=== PATIENT | male | born 1970 | race African-American/Black ===

== ENCOUNTER 2017-12-18 08:47 | Inpatient (IN) | payer OTHER ==
[2017-12-18] MEDS ORDERED: VANCOMYCIN 1 GM (PMX) 250 ML (09:42)
[2017-12-18] MEDS ORDERED: CEFEPIME 1GM/50 ML (PMX) 50 ML (09:42)
[2017-12-18 09:45] LABS: ADD MAN DIFF? NO
[2017-12-18 09:47] LABS: WHITE BLOOD COUNT 15.9 10^3/ul (4.8-10.8)
[2017-12-18 09:47] LABS: ABNORMAL IP MESSAGE 1; BASOPHIL # 0.1 10^3/ul (0.0-0.1); BASOPHILS % 0.8 % (0.0-2.0); EOSINOPHILS # 0.5 10^3/ul (0.0-0.5); EOSINOPHILS % 2.9 % (0.0-7.0); HEMATOCRIT 33.6 % (42.0-52.0); HEMOGLOBIN 10.2 g/dl (14.0-18.0); LYMPHOCYTES # 4.5 10^3/ul (0.8-2.9); LYMPHOCYTES % 28.2 % (15.0-51.0); MEAN CORPUSCULAR HEMOGLOBIN 27.6 pg (29.0-33.0); MEAN CORPUSCULAR HGB CONC 30.4 g/dl (32.0-37.0); MEAN CORPUSCULAR VOLUME 90.8 fl (82.0-101.0); MEAN PLATELET VOLUME 11.9 fl (7.4-10.4); MONOCYTE # 1.8 10^3/ul (0.3-0.9); MONOCYTES % 11.4 % (0.0-11.0); NEUTROPHIL # 8.9 10^3/ul (1.6-7.5); NEUTROPHILS % 55.9 % (39.0-77.0); PLATELET COUNT 283 10^3/UL (140-415); POSITIVE DIFF @See below; RED CELL DISTRIBUTION WIDTH 15.9 % (11.5-14.5)
[2017-12-18] MEDS: SODIUM CHLORIDE 0.9% 1L BAG IV* (09:57)
[2017-12-18 10:05] LABS: LACTIC ACID 1.9 mmol/L (0.5-2.0)
[2017-12-18 10:06] LABS: INR 0.97
[2017-12-18 10:07] LABS: PARTIAL THROMBOPLASTIN TIME 25.8 Sec (23.0-35.0)
[2017-12-18 10:08] LABS: ALANINE AMINOTRANSFERASE 62 IU/L (13-69); ALBUMIN 4.6 g/dl (3.3-4.9); ALBUMIN/GLOBULIN RATIO 1.06; ALKALINE PHOSPHATASE 238 IU/L (42-121); ASPARTATE AMINO TRANSFERASE 52 IU/L (15-46); BILIRUBIN,INDIRECT 0.2 mg/dl (0-1.1); BILIRUBIN,TOTAL 0.2 mg/dl (0.2-1.3); BLOOD UREA NITROGEN 28 mg/dl (7-20); CALCIUM 10.9 mg/dl (8.4-10.2); CARBON DIOXIDE 34 mmol/L (21-31); CHLORIDE 106 mmol/L (97-110); GLUCOSE 173 mg/dl (70-220); LIPASE 91 U/L (23-300); POTASSIUM 3.9 mmol/L (3.5-5.1); TOTAL PROTEIN 8.9 g/dl (6.1-8.1)
[2017-12-18] MEDS: CEFEPIME 2GM/50 ML (PMX) 50 ML IVPB (10:08)
[2017-12-18 10:15] LABS: ANION GAP 13 (8-16); SODIUM 149 mmol/L (135-144)
[2017-12-18 10:17] LABS: TROPONIN-I < 0.012 ng/ml (0.000-0.120)
[2017-12-18] MEDS: VANCOMYCIN 1 GM (PMX) 250 ML IVPB (10:37)
[2017-12-18 11:03] LABS: ADD UMIC NO; UR ASCORBIC ACID 40 mg/dL (NEGATIVE); UR BILIRUBIN (Dip) NEGATIVE (NEGATIVE); UR BLOOD (Dip) NEGATIVE (NEGATIVE); UR CLARITY SLIGHTLY CLOUDY (CLEAR); UR COLOR YELLOW (YELLOW); UR GLUCOSE (Dip) NEGATIVE (NEGATIVE); UR KETONES (Dip) NEGATIVE (NEGATIVE); UR LEUKOCYTE ESTERASE (Dip) NEGATIVE Leu/ul (NEGATIVE); UR NITRITE (Dip) NEGATIVE (NEGATIVE); UR RBC 1 /HPF (0-5); UR SPECIFIC GRAVITY (Dip) 1.014 (1.003-1.030); UR TOTAL PROTEIN (Dip) NEGATIVE (NEGATIVE); UR UROBILINOGEN (Dip) NEGATIVE (NEGATIVE); UR WBC 2 /HPF (0-5)
[2017-12-18] MEDS ORDERED: ACETAMINOPHEN 325 MG TAB PO (11:30)
[2017-12-18] MEDS ORDERED: BISACODYL 10 MG SUPP PR (11:30)
[2017-12-18] MEDS ORDERED: VANCOMYCIN IV PER PHARMACY XX (11:30)
[2017-12-18] MEDS ORDERED: NACL 0.9% 3 ML SYG IV (11:30)
[2017-12-18] MEDS: METOCLOPRAMIDE 5 MG TAB GTB ×3 (11:30→21:07)
[2017-12-18] MEDS ORDERED: DOCUSATE SODIUM 100 MG CAP PO (11:30)
[2017-12-18] MEDS ORDERED: MINERAL OIL 133 ML ENEMA PR (11:30)
[2017-12-18] MEDS ORDERED: ZOLPIDEM 5 MG TAB PO (11:30)
[2017-12-18] MEDS ORDERED: ONDANSETRON 4 MG INJ IV (11:30)
[2017-12-18] MEDS: INSULIN ASPART [NOVOLOG] 3 ML PEN SC ×3 (13:00→21:34)
[2017-12-18] MEDS ORDERED: GLUCAGON 1 MG INJ IM (13:30)
[2017-12-18] MEDS ORDERED: GLUCOSE GEL 15 GRAM TUBE PO ×2 (13:30)
[2017-12-18] MEDS ORDERED: GLUCOSE GEL 15 GRAM TUBE BUCCAL (13:30)
[2017-12-18] MEDS ORDERED: DEXTROSE 50% 50 ML SYRINGE IV ×2 (13:30)
[2017-12-18] MEDS: HYDROCODONE/APAP (5/325) TAB PO (14:41)
[2017-12-18] MEDS: DEXTROSE 5%-0.45% NACL 1,000 ML IV ×2 (15:39→21:10)
[2017-12-18] MEDS: morphine 2 MG INJ IV (16:47)
[2017-12-18] MEDS: PIPER-TAZO 3.375 GM IV (PMX) 100 ML IVPB ×2 (20:00→20:39)
[2017-12-18 20:16] LABS: LACTIC ACID 0.9 mmol/L (0.5-2.0)
[2017-12-18] MEDS: VANCOMYCIN 1 GM in 250 ML IVPB (20:39)
[2017-12-18] MEDS ORDERED: NON-FORMULARY/PATIENT OWN MED (Cran/Vitc/Mannose/Inulin/Brom (Uti-Stat Liquid) 3,875 MG) GTB (21:00)
[2017-12-18] MEDS: ATORVASTATIN 20 MG TAB GTB (21:07)
[2017-12-18] MEDS: MAGNESIUM HYDROXIDE 30ML CUP GTB (21:07)
[2017-12-18] MEDS: CHLORHEXIDINE GLUCONATE 15 ML UD CUP PO (21:07)
[2017-12-18] MEDS: AMANTADINE 100 MG CAP GTB (21:30)
[2017-12-18 22:54] LABS: LACTIC ACID 0.9 mmol/L (0.5-2.0)
[2017-12-19] MEDS: INSULIN ASPART [NOVOLOG] 3 ML PEN SC ×6 (00:58→21:03)
[2017-12-19] MEDS: PIPER-TAZO 3.375 GM IV (PMX) 100 ML IVPB ×4 (00:59→17:28)
[2017-12-19] MEDS: VANCOMYCIN 1 GM in 250 ML IVPB ×2 (00:59→09:47)
[2017-12-19] MEDS: ACCU-CHEK XX (02:00)
[2017-12-19] MEDS ORDERED: PENDING SANTYL ORDER FOR WOUND CARE XX (05:00)
[2017-12-19 05:08] LABS: ADD MAN DIFF? NO; BASOPHIL # 0.1 10^3/ul (0.0-0.1); EOSINOPHILS # 0.6 10^3/ul (0.0-0.5); EOSINOPHILS % 4.5 % (0.0-7.0); HEMATOCRIT 31.7 % (42.0-52.0); HEMOGLOBIN 9.5 g/dl (14.0-18.0); LYMPHOCYTES # 3.5 10^3/ul (0.8-2.9); LYMPHOCYTES % 27.8 % (15.0-51.0); MEAN CORPUSCULAR HEMOGLOBIN 27.2 pg (29.0-33.0); MEAN CORPUSCULAR VOLUME 90.8 fl (82.0-101.0); MEAN PLATELET VOLUME 11.1 fl (7.4-10.4); MONOCYTE # 1.3 10^3/ul (0.3-0.9); MONOCYTES % 10.7 % (0.0-11.0); NEUTROPHIL # 6.9 10^3/ul (1.6-7.5); PLATELET COUNT 248 10^3/UL (140-415); RED BLOOD COUNT 3.49 10^6/ul (4.70-6.10); RED CELL DISTRIBUTION WIDTH 15.9 % (11.5-14.5)
[2017-12-19 05:08] LABS: WHITE BLOOD COUNT 12.6 10^3/ul (4.8-10.8)
[2017-12-19] MEDS: METOCLOPRAMIDE 5 MG TAB GTB ×4 (05:25→21:01)
[2017-12-19 05:43] LABS: ANION GAP 11 (8-16); BLOOD UREA NITROGEN 15 mg/dl (7-20); CALCIUM 10.6 mg/dl (8.4-10.2); CARBON DIOXIDE 34 mmol/L (21-31); CHLORIDE 111 mmol/L (97-110); CREATININE 0.47 mg/dl (0.61-1.24); GLUCOSE 164 mg/dl (70-220); POTASSIUM 3.7 mmol/L (3.5-5.1); SODIUM 152 mmol/L (135-144)
[2017-12-19 06:04] LABS: HEMOGLOBIN A1C 6.1 % (0-5.9)
[2017-12-19] MEDS: DEXTROSE 5%-0.45% NACL 1,000 ML IV (06:18)
[2017-12-19] MEDS: THIAMINE 100 MG TAB GTB (09:00)
[2017-12-19] MEDS: AMANTADINE 100 MG CAP GTB ×2 (09:00→21:01)
[2017-12-19] MEDS: ZINC SULFATE 220 MG CAP GTB (09:00)
[2017-12-19] MEDS: MULTIVITAMINS THERAPEUTIC TAB GTB (09:00)
[2017-12-19] MEDS: CHLORHEXIDINE GLUCONATE 15 ML UD CUP PO ×2 (09:00→21:01)
[2017-12-19] MEDS: FOLIC ACID 1 MG TAB PO (09:01)
[2017-12-19] MEDS: ASCORBIC ACID 500 MG TAB GTB (09:01)
[2017-12-19] MEDS: ENOXAPARIN 40 MG/0.4 ML SYG SC (09:05)
[2017-12-19] MEDS: DEXTROSE 5% 1,000 ML IV (12:19)
[2017-12-19] MEDS: LEVETIRACETAM 500 MG TAB GTB ×2 (12:48→21:01)
[2017-12-19] MEDS: LACTOBACILLUS RHAMNOSUS CAP PO (17:28)
[2017-12-19 17:36] LABS: ALBUMIN 3.6 g/dl (3.3-4.9); ANION GAP 11 (8-16); BLOOD UREA NITROGEN 10 mg/dl (7-20); CALCIUM 11.1 mg/dl (8.4-10.2); CARBON DIOXIDE 32 mmol/L (21-31); CHLORIDE 108 mmol/L (97-110); CREATININE 0.52 mg/dl (0.61-1.24); GLUCOSE 128 mg/dl (70-220); PHOSPHORUS 3.1 mg/dl (2.5-4.9); POTASSIUM 3.3 mmol/L (3.5-5.1)
[2017-12-19 17:46] LABS: VANCOMYCIN,TROUGH 21.8 ug/ml (10.0-20.0)
[2017-12-19 18:04] LABS: SODIUM 148 mmol/L (135-144)
[2017-12-19] MEDS: ATORVASTATIN 20 MG TAB GTB (21:01)
[2017-12-19] MEDS: MAGNESIUM HYDROXIDE 30ML CUP GTB (21:01)
[2017-12-19] MEDS: VANCOMYCIN 1.25 GM in SOD CHLORIDE 0.9% 250 ML IVPB (22:52)
[2017-12-20] MEDS: PIPER-TAZO 3.375 GM IV (PMX) 100 ML IVPB ×4 (01:04→23:29)
[2017-12-20] MEDS: INSULIN ASPART [NOVOLOG] 3 ML PEN SC ×6 (01:14→20:40)
[2017-12-20] MEDS: ACCU-CHEK XX (01:14)
[2017-12-20] MEDS: DEXTROSE 5% 1,000 ML IV (04:45)
[2017-12-20 05:34] LABS: ADD MAN DIFF? NO
[2017-12-20 05:47] LABS: BASOPHIL # 0.1 10^3/ul (0.0-0.1); BASOPHILS % 0.9 % (0.0-2.0); EOSINOPHILS # 0.5 10^3/ul (0.0-0.5); EOSINOPHILS % 4.5 % (0.0-7.0); HEMOGLOBIN 10.3 g/dl (14.0-18.0); LYMPHOCYTES # 3.6 10^3/ul (0.8-2.9); LYMPHOCYTES % 32.4 % (15.0-51.0); MEAN CORPUSCULAR HEMOGLOBIN 27.1 pg (29.0-33.0); MEAN CORPUSCULAR HGB CONC 30.3 g/dl (32.0-37.0); MEAN CORPUSCULAR VOLUME 89.5 fl (82.0-101.0); MEAN PLATELET VOLUME 11.2 fl (7.4-10.4); MONOCYTES % 9.2 % (0.0-11.0); NEUTROPHIL # 5.8 10^3/ul (1.6-7.5); NEUTROPHILS % 51.9 % (39.0-77.0); PLATELET COUNT 260 10^3/UL (140-415); RED CELL DISTRIBUTION WIDTH 15.5 % (11.5-14.5)
[2017-12-20 05:47] LABS: WHITE BLOOD COUNT 11.2 10^3/ul (4.8-10.8)
[2017-12-20 06:10] LABS: ANION GAP 13 (8-16); BLOOD UREA NITROGEN 11 mg/dl (7-20); CALCIUM 11.1 mg/dl (8.4-10.2); CARBON DIOXIDE 31 mmol/L (21-31); CHLORIDE 107 mmol/L (97-110); CREATININE 0.43 mg/dl (0.61-1.24); GLUCOSE 162 mg/dl (70-220); PHOSPHORUS 2.8 mg/dl (2.5-4.9); POTASSIUM 3.3 mmol/L (3.5-5.1); SODIUM 148 mmol/L (135-144)
[2017-12-20] MEDS: METOCLOPRAMIDE 5 MG TAB GTB ×4 (06:20→20:32)
[2017-12-20] MEDS ORDERED: BALSAM PERU/CASTOR OIL 60 GM TUBE TOP (09:00)
[2017-12-20] MEDS: MULTIVITAMINS THERAPEUTIC TAB GTB (09:55)
[2017-12-20] MEDS: LACTOBACILLUS RHAMNOSUS CAP PO (09:55)
[2017-12-20] MEDS: FOLIC ACID 1 MG TAB PO (09:55)
[2017-12-20] MEDS: AMANTADINE 100 MG CAP GTB ×2 (09:55→20:32)
[2017-12-20] MEDS: CHLORHEXIDINE GLUCONATE 15 ML UD CUP PO ×2 (09:55→20:31)
[2017-12-20] MEDS: ASCORBIC ACID 500 MG TAB GTB (09:55)
[2017-12-20] MEDS: LEVETIRACETAM 500 MG TAB GTB ×2 (09:56→20:32)
[2017-12-20] MEDS: THIAMINE 100 MG TAB GTB (09:56)
[2017-12-20] MEDS: ZINC SULFATE 220 MG CAP GTB (09:56)
[2017-12-20] MEDS: ENOXAPARIN 40 MG/0.4 ML SYG SC (10:09)
[2017-12-20] MEDS: BALSAM PERU/CASTOR OIL 60 GM TUBE TOP ×2 (10:29→20:34)
[2017-12-20] MEDS: VANCOMYCIN 1.25 GM in SOD CHLORIDE 0.9% 250 ML IVPB ×2 (10:47→23:29)
[2017-12-20] MEDS: POTASSIUM CHLORIDE 100 ML IVPB ×3 (11:30→19:07)
[2017-12-20] MEDS ORDERED: LEVOFLOXACIN 500MG/D5W (PMX) 100 ML IVPB (15:30)
[2017-12-20] MEDS ORDERED: VANCOMYCIN IV PER PHARMACY XX (16:00)
[2017-12-20] MEDS: HYDROCODONE/APAP (5/325) TAB PO (19:07)
[2017-12-20] MEDS ORDERED: morphine LIQ (10 MG/5 ML) CUP GTB (20:30)
[2017-12-20] MEDS: MAGNESIUM HYDROXIDE 30ML CUP GTB (20:31)
[2017-12-20] MEDS: ATORVASTATIN 20 MG TAB GTB (20:32)
[2017-12-21] MEDS: INSULIN ASPART [NOVOLOG] 3 ML PEN SC ×6 (01:00→20:53)
[2017-12-21] MEDS: ACCU-CHEK XX (02:00)
[2017-12-21] MEDS: DEXTROSE 5% 1,000 ML IV (02:00)
[2017-12-21] MEDS: PIPER-TAZO 3.375 GM IV (PMX) 100 ML IVPB ×3 (05:07→17:37)
[2017-12-21 06:12] LABS: ADD MAN DIFF? NO
[2017-12-21 06:16] LABS: WHITE BLOOD COUNT 13.4 10^3/ul (4.8-10.8)
[2017-12-21 06:16] LABS: BASOPHIL # 0.1 10^3/ul (0.0-0.1); BASOPHILS % 0.9 % (0.0-2.0); EOSINOPHILS # 0.5 10^3/ul (0.0-0.5); EOSINOPHILS % 3.9 % (0.0-7.0); HEMATOCRIT 33.4 % (42.0-52.0); HEMOGLOBIN 10.4 g/dl (14.0-18.0); LYMPHOCYTES # 4.2 10^3/ul (0.8-2.9); LYMPHOCYTES % 31.1 % (15.0-51.0); MEAN CORPUSCULAR HEMOGLOBIN 27.9 pg (29.0-33.0); MEAN CORPUSCULAR HGB CONC 31.1 g/dl (32.0-37.0); MEAN CORPUSCULAR VOLUME 89.5 fl (82.0-101.0); MEAN PLATELET VOLUME 11.5 fl (7.4-10.4); MONOCYTE # 1.4 10^3/ul (0.3-0.9); MONOCYTES % 10.4 % (0.0-11.0); NEUTROPHIL # 7.1 10^3/ul (1.6-7.5); NEUTROPHILS % 52.7 % (39.0-77.0); PLATELET COUNT 293 10^3/UL (140-415); RED BLOOD COUNT 3.73 10^6/ul (4.70-6.10); RED CELL DISTRIBUTION WIDTH 15.7 % (11.5-14.5)
[2017-12-21 06:59] LABS: ANION GAP 12 (8-16); BLOOD UREA NITROGEN 10 mg/dl (7-20); CALCIUM 10.9 mg/dl (8.4-10.2); CARBON DIOXIDE 29 mmol/L (21-31); CHLORIDE 112 mmol/L (97-110); GLUCOSE 143 mg/dl (70-220); PHOSPHORUS 2.6 mg/dl (2.5-4.9); POTASSIUM 3.9 mmol/L (3.5-5.1); SODIUM 149 mmol/L (135-144)
[2017-12-21] MEDS ORDERED: METOPROLOL 5 MG INJ IV (09:00)
[2017-12-21] MEDS: LACTOBACILLUS RHAMNOSUS CAP PO (10:26)
[2017-12-21] MEDS: BALSAM PERU/CASTOR OIL 60 GM TUBE TOP ×2 (10:26→22:13)
[2017-12-21] MEDS: CHLORHEXIDINE GLUCONATE 15 ML UD CUP PO ×2 (10:26→22:11)
[2017-12-21] MEDS: ASCORBIC ACID 500 MG TAB GTB (10:27)
[2017-12-21] MEDS: METOCLOPRAMIDE 5 MG TAB GTB ×4 (10:27→22:12)
[2017-12-21] MEDS: FOLIC ACID 1 MG TAB PO (10:27)
[2017-12-21] MEDS: LEVETIRACETAM 500 MG TAB GTB ×2 (10:27→22:12)
[2017-12-21] MEDS: AMANTADINE 100 MG CAP GTB ×2 (10:27→22:12)
[2017-12-21] MEDS: THIAMINE 100 MG TAB GTB (10:27)
[2017-12-21] MEDS: MULTIVITAMINS THERAPEUTIC TAB GTB (10:27)
[2017-12-21] MEDS: ZINC SULFATE 220 MG CAP GTB (10:27)
[2017-12-21] MEDS: LABETALOL 100 MG TAB GTB ×2 (10:28→22:11)
[2017-12-21] MEDS: ENOXAPARIN 40 MG/0.4 ML SYG SC (10:38)
[2017-12-21 11:35] LABS: VANCOMYCIN,TROUGH 19.2 ug/ml (10.0-20.0)
[2017-12-21] MEDS ORDERED: LEVOFLOXACIN 500 MG TAB PO (12:00)
[2017-12-21] MEDS: VANCOMYCIN 1 GM 250 ML IVPB (16:46)
[2017-12-21] MEDS: MAGNESIUM HYDROXIDE 30ML CUP GTB (22:11)
[2017-12-21] MEDS: ATORVASTATIN 20 MG TAB GTB (22:12)
[2017-12-22] MEDS: PIPER-TAZO 3.375 GM IV (PMX) 100 ML IVPB ×4 (01:04→18:33)
[2017-12-22] MEDS: INSULIN ASPART [NOVOLOG] 3 ML PEN SC ×6 (01:49→22:00)
[2017-12-22] MEDS: VANCOMYCIN 1 GM 250 ML IVPB ×2 (03:49→16:40)
[2017-12-22] MEDS: DEXTROSE 5% 1,000 ML IV ×2 (03:53→18:00)
[2017-12-22 05:40] LABS: ADD MAN DIFF? NO
[2017-12-22 05:47] LABS: BASOPHIL # 0.1 10^3/ul (0.0-0.1); BASOPHILS % 0.8 % (0.0-2.0); EOSINOPHILS # 0.5 10^3/ul (0.0-0.5); EOSINOPHILS % 4.1 % (0.0-7.0); HEMATOCRIT 31.4 % (42.0-52.0); HEMOGLOBIN 9.6 g/dl (14.0-18.0); LYMPHOCYTES # 4.4 10^3/ul (0.8-2.9); LYMPHOCYTES % 35.6 % (15.0-51.0); MEAN CORPUSCULAR HEMOGLOBIN 27.3 pg (29.0-33.0); MEAN CORPUSCULAR HGB CONC 30.6 g/dl (32.0-37.0); MEAN CORPUSCULAR VOLUME 89.2 fl (82.0-101.0); MEAN PLATELET VOLUME 11.4 fl (7.4-10.4); MONOCYTE # 1.3 10^3/ul (0.3-0.9); MONOCYTES % 10.5 % (0.0-11.0); NEUTROPHIL # 5.9 10^3/ul (1.6-7.5); NEUTROPHILS % 47.9 % (39.0-77.0); PLATELET COUNT 271 10^3/UL (140-415); RED BLOOD COUNT 3.52 10^6/ul (4.70-6.10); RED CELL DISTRIBUTION WIDTH 15.7 % (11.5-14.5)
[2017-12-22 05:47] LABS: WHITE BLOOD COUNT 12.3 10^3/ul (4.8-10.8)
[2017-12-22] MEDS: METOCLOPRAMIDE 5 MG TAB GTB ×4 (06:46→21:36)
[2017-12-22 06:48] LABS: ANION GAP 15 (8-16); BLOOD UREA NITROGEN 12 mg/dl (7-20); CALCIUM 10.7 mg/dl (8.4-10.2); CARBON DIOXIDE 29 mmol/L (21-31); CHLORIDE 107 mmol/L (97-110); CREATININE 0.45 mg/dl (0.61-1.24); GLUCOSE 136 mg/dl (70-220); MAGNESIUM 2.1 mg/dl (1.7-2.5); PHOSPHORUS 3.1 mg/dl (2.5-4.9); POTASSIUM 3.7 mmol/L (3.5-5.1); SODIUM 147 mmol/L (135-144)
[2017-12-22] MEDS: CHLORHEXIDINE GLUCONATE 15 ML UD CUP PO ×2 (09:52→21:36)
[2017-12-22] MEDS: FOLIC ACID 1 MG TAB PO (09:52)
[2017-12-22] MEDS: ASCORBIC ACID 500 MG TAB GTB (09:53)
[2017-12-22] MEDS: LABETALOL 100 MG TAB GTB ×2 (09:53→21:38)
[2017-12-22] MEDS: MULTIVITAMINS THERAPEUTIC TAB GTB (09:53)
[2017-12-22] MEDS: AMANTADINE 100 MG CAP GTB ×2 (09:53→21:38)
[2017-12-22] MEDS: ZINC SULFATE 220 MG CAP GTB (09:53)
[2017-12-22] MEDS: THIAMINE 100 MG TAB GTB (09:53)
[2017-12-22] MEDS: LEVETIRACETAM 500 MG TAB GTB ×2 (09:54→21:38)
[2017-12-22] MEDS: LACTOBACILLUS RHAMNOSUS CAP PO (09:54)
[2017-12-22] MEDS: BALSAM PERU/CASTOR OIL 60 GM TUBE TOP ×2 (09:58→21:39)
[2017-12-22] MEDS: MAGNESIUM HYDROXIDE 30ML CUP GTB (21:36)
[2017-12-22] MEDS: ATORVASTATIN 20 MG TAB GTB (21:36)
[2017-12-23] MEDS: PIPER-TAZO 3.375 GM IV (PMX) 100 ML IVPB ×3 (00:34→12:19)
[2017-12-23] MEDS: INSULIN ASPART [NOVOLOG] 3 ML PEN SC ×4 (00:48→12:41)
[2017-12-23 03:46] LABS: VANCOMYCIN,TROUGH 13.5 ug/ml (10.0-20.0)
[2017-12-23] MEDS: VANCOMYCIN 1 GM 250 ML IVPB (04:29)
[2017-12-23] MEDS: DEXTROSE 5% 1,000 ML IV (04:34)
[2017-12-23] MEDS: METOCLOPRAMIDE 5 MG TAB GTB ×2 (06:38→12:19)
[2017-12-23] MEDS: CHLORHEXIDINE GLUCONATE 15 ML UD CUP PO (08:38)
[2017-12-23] MEDS: AMANTADINE 100 MG CAP GTB (08:38)
[2017-12-23] MEDS: FOLIC ACID 1 MG TAB PO (08:39)
[2017-12-23] MEDS: LABETALOL 100 MG TAB GTB (08:39)
[2017-12-23] MEDS: ZINC SULFATE 220 MG CAP GTB (08:39)
[2017-12-23] MEDS: THIAMINE 100 MG TAB GTB (08:39)
[2017-12-23] MEDS: LEVETIRACETAM 500 MG TAB GTB (08:40)
[2017-12-23] MEDS: BALSAM PERU/CASTOR OIL 60 GM TUBE TOP (08:40)
[2017-12-23] MEDS: LACTOBACILLUS RHAMNOSUS CAP PO (08:40)
[2017-12-23] MEDS: ASCORBIC ACID 500 MG TAB GTB (08:40)
[2017-12-23] MEDS: MULTIVITAMINS THERAPEUTIC TAB GTB (08:40)
== END 2017-12-23 13:35 | DRG 872 ==
LOC: E/R 08:47 → 6WM 11:07
DX: A41.9 Sepsis, unspecified organism (principal); E87.0 Hyperosmolality and hypernatremia; R79.89 Other specified abnormal findings of blood chemistry; E86.0 Dehydration
CPT/HCPCS: 36415; 70450; 70551; 71045; 80048; 80053; 80069; 80202; 81001; 81003; 82962; 83036; 83605; 83690; 83735; 84100; 84484; 85025; 85610; 85730; 86850; 86900; 86901; 87040; 87081; 87086; 93005; 93306; 93970; 96374; 96375; 99291-25